=== PATIENT | female | born 1940 | race Two or more races ===

== ENCOUNTER 2023-05-23 23:07 | Inpatient (IN) | payer MEDICARE ==
[~2023-05-23] VITALS: Ht 167.6 cm; Wt 54.4 kg
[2023-05-24 00:07] LABS: BASOPHILS % (AUTO) 0.1 % (0.0-2.0); EOSINOPHILS # (AUTO) 0.1 K/uL (0.0-0.7); HEMATOCRIT 34 % (33-45); LYMPHOCYTES # (AUTO) 0.9 K/uL (0.8-4.8); LYMPHOCYTES % (AUTO) 6.8 % (20.0-44.0); MEAN CORPUSCULAR HEMOGLOBIN 31 PG (26.0-33.0); MEAN CORPUSCULAR HGB CONC 32 g/dl (31.0-36.0); MEAN CORPUSCULAR VOLUME 96 fL (82-100); MONOCYTES # (AUTO) 0.8 K/uL (0.1-1.30); MONOCYTES % (AUTO) 6.2 % (2.0-12.0); NEUTROPHILS # (AUTO) 10.7 K/uL (1.8-8.9); NEUTROPHILS % (AUTO) 85.9 % (43.0-81.0); PLATELET COUNT (AUTO) 283 K/uL (150-450); RED BLOOD CELL COUNT(AUTO) 3.56 MIL/uL (4.0-5.2); RED CELL DISTRIBUTION WIDTH 15.4 % (11.5-15.0); WHITE BLOOD COUNT (AUTO) 12.4 K/uL (4.3-11.0)
[2023-05-24 00:21] LABS: SERUM AMMONIA < 10 umol/L (11-32)
[2023-05-24 00:23] LABS: CALCIUM, SERUM 9.5 mg/dL (8.5-10.1); CARBON DIOXIDE 28 mmol/L (21-32); CHLORIDE 105 mmol/L (98-107); CREATININE 3.8 mg/dL (0.6-1.3); GLUCOSE 147 mg/dL (74-106); POTASSIUM 4.7 mmol/L (3.5-5.1); SODIUM SERUM 141 mmol/L (136-145); UREA NITROGEN, BLOOD 78 mg/dL (7-18)
[2023-05-24 00:29] LABS: ALANINE AMINOTRANSFERASE 21 U/L (12-78); ALBUMIN 2.7 g/dL (3.4-5.0); ALKALINE PHOSPHATASE 80 U/L (46-116); ASPARTATE AMINOTRANSFERASE 14 U/L (15-37); BILIRUBIN,DIRECT 0.1 mg/dL (0.0-0.2); BILIRUBIN,TOTAL 0.3 mg/dL (0.2-1.0); TOTAL PROTEIN, SERUM 7.1 g/dL (6.4-8.2)
[2023-05-24 00:30] LABS: INR 1.02 (0.91-1.10); PARTIAL THROMBOPLASTIN TIME 35.9 SEC (24.3-34.3); PROTHROMBIN TIME 10.8 SECS (9.2-11.1)
[2023-05-24] MEDS ORDERED: PIPERACI/TAZO 3.375GM/D5W 50ML PB IV ONE (00:59)
[2023-05-24] MEDS: PIPERACILLIN /TAZOBACTAM 3.375 G in IV D5W 50 ML IV ONE (01:00)
[2023-05-24 01:01] LABS: THYROID STIMULATING HORMONE 4.783 uIU/mL (0.358-3.74)
[2023-05-24 01:04] LABS: APPEARANCE,URINE CLOUDY (CLEAR); BILIRUBIN,URINE NEGATIVE (NEGATIVE); BLOOD, URINE NEGATIVE Ery/uL (NEGATIVE); COLOR,URINE YELLOW (YELLOW); KETONES,URINE NEGATIVE (NEGATIVE); LEUKOCYTE ESTERASE ,URINE NEGATIVE (NEGATIVE); NITRITE, URINE NEGATIVE (NEGATIVE); PH,URINE 8.5 (5.0-8.0); PROTEIN,URINE 2+ mg/dl (NEGATIVE); UGLUCOSE NEGATIVE (NEGATIVE); UROBILINOGEN,URINE 0.2 EU/dL (0.2)
[2023-05-24] MEDS ORDERED: VANCOMYCIN 1 GM /D5W 250 ML PB IV ONE (01:04)
[2023-05-24 01:07] LABS: ADD URINE CULTURE NO; BACTERIA,URINE None seen /HPF (None Seen); RBC,URINE 0-2 /HPF (0-2); SQUAMOUS EPITHELIAL CELL,UR Few /HPF (None Seen); WBC,URINE 0-2 /HPF (0-3)
[2023-05-24] MEDS: VANCOMYCIN 1 GM in IV D5W 250 ML IV ONE (01:28)
[2023-05-24] MEDS ORDERED: ZOLPIDEM TARTRATE 5 MG TABLET PO PRN (02:00)
[2023-05-24] MEDS ORDERED: MAG HYDROX/AL HYDROX/SIMETH 30 ML UDC PO PRN (02:00)
[2023-05-24] MEDS ORDERED: MAGNESIUM HYDROXIDE 30 ML UDC PO PRN (02:00)
[2023-05-24] MEDS ORDERED: ONDANSETRON HCL/PF 4 MG/2 ML VIAL IVP PRN (02:00)
[2023-05-24] MEDS ORDERED: Z GUARD REMEDY 4 OZ OINT TP PRN (02:00)
[2023-05-24] MEDS ORDERED: AZITHROMYCIN 500 MG VIAL ONE (02:15)
[2023-05-24] MEDS: AZITHROMYCIN 500 MG in IV D5W 250 ML IV ONE (02:22)
[2023-05-24 07:29] LABS: BASOPHILS # (AUTO) 0.1 K/uL (0.0-0.2); BASOPHILS % (AUTO) 0.6 % (0.0-2.0); EOSINOPHILS # (AUTO) 0.1 K/uL (0.0-0.7); EOSINOPHILS % (AUTO) 0.7 % (0.0-6.0); HEMATOCRIT 33 % (33-45); HEMOGLOBIN 10.2 g/dL (11.5-14.8); LYMPHOCYTES % (AUTO) 6.4 % (20.0-44.0); MEAN CORPUSCULAR HEMOGLOBIN 31 PG (26.0-33.0); MEAN CORPUSCULAR HGB CONC 31 g/dl (31.0-36.0); MEAN CORPUSCULAR VOLUME 99 fL (82-100); MONOCYTES # (AUTO) 1.1 K/uL (0.1-1.30); MONOCYTES % (AUTO) 7.4 % (2.0-12.0); NEUTROPHILS # (AUTO) 13.2 K/uL (1.8-8.9); NEUTROPHILS % (AUTO) 84.9 % (43.0-81.0); PLATELET COUNT (AUTO) 297 K/uL (150-450); RED BLOOD CELL COUNT(AUTO) 3.34 MIL/uL (4.0-5.2); WHITE BLOOD COUNT (AUTO) 15.6 K/uL (4.3-11.0)
[2023-05-24 07:47] LABS: CALCIUM, SERUM 9.3 mg/dL (8.5-10.1); CARBON DIOXIDE 21 mmol/L (21-32); CHLORIDE 103 mmol/L (98-107); CREATININE 3.9 mg/dL (0.6-1.3); GLUCOSE 153 mg/dL (74-106); POTASSIUM 4.6 mmol/L (3.5-5.1); SODIUM SERUM 138 mmol/L (136-145); UREA NITROGEN, BLOOD 79 mg/dL (7-18)
[2023-05-24 07:50] LABS: MAGNESIUM 2.7 mg/dL (1.8-2.4)
[2023-05-24 07:53] LABS: LACTIC ACID 0.9 mmol/L (0.4-2.0)
[2023-05-24 08:00] LABS: THYROID STIMULATING HORMONE 4.821 uIU/mL (0.358-3.74)
[2023-05-24 08:15] VITALS: BP 50/100; TEMP 98.2; O2SAT 84
[2023-05-24] MEDS ORDERED: MORPHINE SULFATE INJ 2 MG/ML DISP.SYRIN IVP PRN (08:30)
[2023-05-24] MEDS ORDERED: ZOSYN IVPB 2.25 G in IV D5W 50ml IV SCH (09:00)
[2023-05-24] MEDS ORDERED: ALBUTEROL FS 2.5 MG/0.5 ML VIAL.NEB NEB PRN (09:00)
[2023-05-24] MEDS: PANTOPRAZOLE 40 MG VIAL IV SCH (09:02)
[2023-05-24] MEDS: ENOXAPARIN SODIUM 30 MG/0.3 ML DISP.SYRIN SQ SCH (09:04)
[2023-05-24] MEDS: IV NS 0.9% 1,000 ML IV ONE (09:31)
[2023-05-24] MEDS ORDERED: ATOR20TA PO (09:50)
[2023-05-24] MEDS ORDERED: LATA2.5D15 EACHEYE (09:50)
[2023-05-24] MEDS ORDERED: SERT50TA PO (09:50)
[2023-05-24] MEDS ORDERED: CLON1PAT TD (09:50)
[2023-05-24] MEDS ORDERED: DILT-4 PO (09:50)
[2023-05-24] MEDS ORDERED: METO-358 PO (09:50)
[2023-05-24] MEDS ORDERED: TIMO5DRO35 EACHEYE (09:50)
[2023-05-24] MEDS ORDERED: ISOS30TA86 PO (09:50)
[2023-05-24] MEDS ORDERED: FLUT1BLS6 IH (09:50)
[2023-05-24] MEDS: IV NS 0.9% 1,000 ML BAG IV PRN (10:34)
[2023-05-24] MEDS: CEFEPIME 1 GM in IV D5W 50 ML IV SCH (11:11)
[2023-05-24 12:00] VITALS: BP 138/52; TEMP 97.5; O2SAT 91
[2023-05-24] MEDS ORDERED: IPRATROPIUM/ALBUTEROL INHALER IH SCH (12:00)
[2023-05-24 13:21] LABS: ABG BASE EXCESS -7.5 mmol/L; ABG OXYGEN SATURATION 96.2 % (92.0-98.5); ABG PCO2 55.6 mmHg (35.0-45.0); ABG PH 7.192 (7.350-7.450); ABG PO2 96.6 mmHg (75.0-100.0); ABG TOTAL HEMOGLOBIN 11.5 G/dL (12.0-16.0); AaDO2 124.7 mmHg; COHb 0.8 % (0.5-1.5); MetHb 0.2 % (0.0-1.5); O2Hb 95.2 % (94.0-97.0); SITE, ABG Right Radial; VENT MODE, BG Nasal Cannula
[2023-05-24] MEDS: IPRATROPIUM NEB FS 0.5 MG/2.5 ML AMPUL.NEB NEB SCH (13:36)
[2023-05-24] MEDS: ALBUTEROL FS 2.5 MG/0.5 ML VIAL.NEB NEB SCH (13:36)
[2023-05-24] MEDS ORDERED: Sodium Bicarbonate 100 MEQ in IV D5W 1,000 ML IV SCH (13:45)
[2023-05-24] MEDS: Sodium Bicarbonate 100 MEQ in IV D5W 1,000 ML IV SCH (14:05)
[2023-05-24] MEDS: methylPREDNISolone SOD SUCC 125 MG/2ML VIAL IV SCH (14:06)
[2023-05-24 15:32] LABS: ABG BASE EXCESS -7.6 mmol/L; ABG OXYGEN SATURATION 97.7 % (92.0-98.5); ABG PCO2 76.7 mmHg (35.0-45.0); ABG PH 7.097 (7.350-7.450); ABG PO2 129.8 mmHg (75.0-100.0); ABG TOTAL HEMOGLOBIN 11.6 G/dL (12.0-16.0); AaDO2 67.2 mmHg; COHb 0.9 % (0.5-1.5); MetHb 0.3 % (0.0-1.5); O2Hb 96.5 % (94.0-97.0); SITE, ABG Right Radial
[2023-05-24 16:18] VITALS: BP 137/74; TEMP 98.3; O2SAT 100
[2023-05-24] MEDS: TIMOLOL 0.5% SOLN OPHTH 5 ML BOTTLE EACHEYE SCH (17:06)
[2023-05-24 17:37] LABS: ABG BASE EXCESS -4.8 mmol/L; ABG OXYGEN SATURATION 97.9 % (92.0-98.5); ABG PCO2 58.2 mmHg (35.0-45.0); ABG PH 7.221 (7.350-7.450); ABG PO2 125.5 mmHg (75.0-100.0); ABG TOTAL HEMOGLOBIN 11.4 G/dL (12.0-16.0); AaDO2 92.8 mmHg; COHb 0.5 % (0.5-1.5); MetHb 0.3 % (0.0-1.5); O2Hb 97.1 % (94.0-97.0); SITE, ABG Right Radial
[2023-05-24 20:00] VITALS: BP 138/53; TEMP 98.1; O2SAT 100
[2023-05-24] MEDS: LATANOPROST EYE DROP 0.005% 2.5 ML BOTTLE EACHEYE SCH (22:21)
[2023-05-25] VITALS (13 sets, daily range): BP systolic 148–192; BP diastolic 56–83; TEMP 97.3–98.4; O2SAT 92–100
[2023-05-25 05:07] LABS: ABG BASE EXCESS -4.2 mmol/L; ABG OXYGEN SATURATION 94.6 % (92.0-98.5); ABG PCO2 47.1 mmHg (35.0-45.0); ABG PH 7.294 (7.350-7.450); ABG PO2 82.6 mmHg (75.0-100.0); ABG TOTAL HEMOGLOBIN 11.8 G/dL (12.0-16.0); COHb 0.8 % (0.5-1.5); MetHb 0.1 % (0.0-1.5); O2Hb 93.7 % (94.0-97.0); SITE, ABG Left Radial; VENT MODE, BG BIPAP 20/5 RR24 30%
[2023-05-25 07:10] LABS: APPEARANCE,URINE CLEAR (CLEAR); BILIRUBIN,URINE NEGATIVE (NEGATIVE); BLOOD, URINE TRACE-INTA Ery/uL (NEGATIVE); COLOR,URINE YELLOW (YELLOW); KETONES,URINE NEGATIVE (NEGATIVE); LEUKOCYTE ESTERASE ,URINE NEGATIVE (NEGATIVE); NITRITE, URINE NEGATIVE (NEGATIVE); PH,URINE 7.5 (5.0-8.0); PROTEIN,URINE 2+ mg/dl (NEGATIVE); UGLUCOSE NEGATIVE (NEGATIVE); UROBILINOGEN,URINE 0.2 EU/dL (0.2)
[2023-05-25 07:31] LABS: HEMATOCRIT 32 % (33-45); HEMOGLOBIN 10.6 g/dL (11.5-14.8); LYMPHOCYTES # (AUTO) 0.4 K/uL (0.8-4.8); LYMPHOCYTES % (AUTO) 5.8 % (20.0-44.0); MEAN CORPUSCULAR HEMOGLOBIN 31 PG (26.0-33.0); MEAN CORPUSCULAR HGB CONC 33 g/dl (31.0-36.0); MEAN CORPUSCULAR VOLUME 94 fL (82-100); MONOCYTES % (AUTO) 0.4 % (2.0-12.0); NEUTROPHILS # (AUTO) 7.2 K/uL (1.8-8.9); NEUTROPHILS % (AUTO) 93.8 % (43.0-81.0); PLATELET COUNT (AUTO) 215 K/uL (150-450); RED BLOOD CELL COUNT(AUTO) 3.38 MIL/uL (4.0-5.2); RED CELL DISTRIBUTION WIDTH 14.9 % (11.5-15.0); WHITE BLOOD COUNT (AUTO) 7.7 K/uL (4.3-11.0)
[2023-05-25 07:49] LABS: CREATININE, URINE 76.7 MG/DL (30.0-125.0)
[2023-05-25 08:10] LABS: ADD URINE CULTURE NO; BACTERIA,URINE Rare /HPF (None Seen); EOSINOPHIL,URINE None Seen; SQUAMOUS EPITHELIAL CELL,UR Few /HPF (None Seen); WBC,URINE 0-2 /HPF (0-3)
[2023-05-25 08:28] LABS: CHOLESTEROL 131 mg/dL (<200); CREATINE KINASE, TOTAL 37 U/L (26-192); HDL CHOLESTEROL 50 mg/dL (40-60); LDL 69 mg/dL (0-99); TRIGLYCERIDES 77 mg/dL (30-150)
[2023-05-25 08:36] LABS: ALANINE AMINOTRANSFERASE 18 U/L (12-78); ALBUMIN 2.4 g/dL (3.4-5.0); ALKALINE PHOSPHATASE 68 U/L (46-116); ASPARTATE AMINOTRANSFERASE 15 U/L (15-37); BILIRUBIN,TOTAL 0.4 mg/dL (0.2-1.0); CALCIUM, SERUM 8.8 mg/dL (8.5-10.1); CARBON DIOXIDE 22 mmol/L (21-32); CHLORIDE 104 mmol/L (98-107); CREATININE 4.2 mg/dL (0.6-1.3); GLUCOSE 171 mg/dL (74-106); MAGNESIUM 2.5 mg/dL (1.8-2.4); PHOSPHORUS 7.1 mg/dL (2.5-4.9); POTASSIUM 4.5 mmol/L (3.5-5.1); SODIUM SERUM 140 mmol/L (136-145); TOTAL PROTEIN, SERUM 6.6 g/dL (6.4-8.2)
[2023-05-25 08:53] LABS: UREA NITROGEN, BLOOD 81 mg/dL (7-18)
[2023-05-25] MEDS: ISOSORBIDE MONONITRATE (30MG) 30 MG TAB.SR.24H PO SCH (11:08)
[2023-05-25] MEDS: METOPROLOL SUCCINATE 50 MG TAB.SR.24H PO SCH (11:08)
[2023-05-25] MEDS: SERTRALINE HCL 50 MG TABLET PO SCH (11:09)
[2023-05-25] MEDS: ATORVASTATIN 10 MG TABLET PO SCH (11:09)
[2023-05-25] MEDS: DILTIAZEM HCL CD 240 MG PO SCH (11:09)
[2023-05-25] MEDS: Sodium Bicarbonate 100 MEQ in IV D5W 1,000 ML IV SCH (14:16)
[2023-05-25] MEDS: ACETAMINOPHEN 325 MG TABLET PO PRN (23:39)
[2023-05-26] VITALS (11 sets, daily range): BP systolic 147–161; BP diastolic 61–68; TEMP 97.5–98.8; O2SAT 93–100
[2023-05-26] MEDS: VANCOMYCIN 500 MG in IV D5W 100ml IV SCH (00:20)
[2023-05-26 07:15] LABS: CALCIUM, SERUM 8.2 mg/dL (8.5-10.1); CARBON DIOXIDE 24 mmol/L (21-32); CHLORIDE 100 mmol/L (98-107); CREATININE 4.4 mg/dL (0.6-1.3); GLUCOSE 200 mg/dL (74-106); POTASSIUM 4.2 mmol/L (3.5-5.1); SODIUM SERUM 135 mmol/L (136-145)
[2023-05-26 07:27] LABS: UREA NITROGEN, BLOOD 90 mg/dL (7-18)
[2023-05-26] MEDS: PANTOPRAZOLE 40 MG/PACK PACK PO SCH (08:49)
[2023-05-26 09:08] LABS: FOLIC ACID 17.1 ng/mL (>3.0)
[2023-05-26 11:07] LABS: PTH, INTACT 41 pg/mL (15-65)
[2023-05-26 12:08] LABS: *SPE A/G RATIO 0.7 (0.7-1.7); *SPE ALBUMIN 2.4 g/dL (2.9-4.4); *SPE ALPHA-1-GLOBULIN 0.3 g/dL (0.0-0.4); *SPE BETA GLOBULIN 0.9 g/dL (0.7-1.3); *SPE GLOBULIN, TOTAL 3.6 g/dL (2.2-3.9); *SPE M-SPIKE Not Observed g/dL (Not Observed); *SPEGAMMA GLOBULIN 1.4 g/dL (0.4-1.8)
[2023-05-26] MEDS: methylPREDNISolone SOD SUCC 125 MG/2ML VIAL IV SCH (12:38)
[2023-05-27] VITALS (9 sets, daily range): BP systolic 144–153; BP diastolic 65–80; TEMP 97.5–97.7; O2SAT 94–100
[2023-05-27 06:09] LABS: HEPATITIS B SURFACE AB Non Reactive (.)
[2023-05-27 06:30] LABS: CALCIUM, SERUM 8.4 mg/dL (8.5-10.1); CARBON DIOXIDE 31 mmol/L (21-32); CHLORIDE 99 mmol/L (98-107); CREATININE 4.7 mg/dL (0.6-1.3); GLUCOSE 276 mg/dL (74-106); POTASSIUM 3.6 mmol/L (3.5-5.1); SODIUM SERUM 138 mmol/L (136-145)
[2023-05-27 06:51] LABS: UREA NITROGEN, BLOOD 100 mg/dL (7-18)
[2023-05-27 09:08] LABS: COMPLEMENT C3, SERUM 85 mg/dL (82-167); COMPLEMENT C4, SERUM 31 mg/dL (12-38)
[2023-05-27] MEDS: LEVOFLOXACIN (250MG) 250 MG TABLET PO ONE (09:14)
[2023-05-27 13:08] LABS: *ANA ANTI-CENTROMERE B AB <0.2 AI (0.0-0.9); *ANA ANTI-DNA(DS) AB, QN <1 IU/mL (0-9); *ANA ANTI-JO-1 <0.2 AI (0.0-0.9); *ANA ANTICHROMATIN ANTIBODY <0.2 AI (0.0-0.9); *ANA RNP ANTIBODIES 0.2 AI (0.0-0.9); *ANA SJOGREN'S ANTI-SS-A <0.2 AI (0.0-0.9); *ANA SJOGREN'S ANTI-SS-B <0.2 AI (0.0-0.9); *ANAANTI-SCLERODERMA-70 AB <0.2 AI (0.0-0.9); *ANASMITH AB <0.2 AI (0.0-0.9)
[2023-05-28] VITALS (11 sets, daily range): BP systolic 152–183; BP diastolic 66–71; TEMP 97.9–98.6; O2SAT 94–100
[2023-05-28 07:15] LABS: CALCIUM, SERUM 7.6 mg/dL (8.5-10.1); CARBON DIOXIDE 28 mmol/L (21-32); CHLORIDE 97 mmol/L (98-107); CREATININE 4.4 mg/dL (0.6-1.3); GLUCOSE 226 mg/dL (74-106); POTASSIUM 3.8 mmol/L (3.5-5.1); SODIUM SERUM 136 mmol/L (136-145)
[2023-05-28 07:21] LABS: UREA NITROGEN, BLOOD 94 mg/dL (7-18)
[2023-05-29] VITALS (10 sets, daily range): BP systolic 133–169; BP diastolic 59–71; TEMP 97.3–98.2; O2SAT 90–100
[2023-05-29 07:14] LABS: INR 1.03 (0.91-1.10); PARTIAL THROMBOPLASTIN TIME 28.7 SEC (24.3-34.3); PROTHROMBIN TIME 10.9 SECS (9.2-11.1)
[2023-05-29 07:16] LABS: HEMATOCRIT 28 % (33-45); HEMOGLOBIN 9.5 g/dL (11.5-14.8); LYMPHOCYTES # (AUTO) 0.4 K/uL (0.8-4.8); LYMPHOCYTES % (AUTO) 2.9 % (20.0-44.0); MEAN CORPUSCULAR HEMOGLOBIN 31 PG (26.0-33.0); MEAN CORPUSCULAR HGB CONC 34 g/dl (31.0-36.0); MEAN CORPUSCULAR VOLUME 91 fL (82-100); MONOCYTES # (AUTO) 0.7 K/uL (0.1-1.30); MONOCYTES % (AUTO) 5.8 % (2.0-12.0); NEUTROPHILS # (AUTO) 11.1 K/uL (1.8-8.9); NEUTROPHILS % (AUTO) 91.3 % (43.0-81.0); PLATELET COUNT (AUTO) 187 K/uL (150-450); RED BLOOD CELL COUNT(AUTO) 3.04 MIL/uL (4.0-5.2); WHITE BLOOD COUNT (AUTO) 12.2 K/uL (4.3-11.0)
[2023-05-29 07:25] LABS: CALCIUM, SERUM 7.2 mg/dL (8.5-10.1); CARBON DIOXIDE 34 mmol/L (21-32); CHLORIDE 94 mmol/L (98-107); CREATININE 4.3 mg/dL (0.6-1.3); GLUCOSE 224 mg/dL (74-106); MAGNESIUM 2.3 mg/dL (1.8-2.4); PHOSPHORUS 6.8 mg/dL (2.5-4.9); POTASSIUM 3.5 mmol/L (3.5-5.1); SODIUM SERUM 135 mmol/L (136-145)
[2023-05-29 07:26] LABS: UREA NITROGEN, BLOOD 92 mg/dL (7-18)
[2023-05-29] MEDS: methylPREDNISolone SOD SUCC 40 MG/ML VIAL IV SCH (10:01)
[2023-05-29] MEDS: LEVOFLOXACIN (250MG) 250 MG TABLET PO SCH (10:06)
[2023-05-29] MEDS: NEOMY SULF/BACITRAC ZN/POLY 15 GM TUBE TP SCH (13:23)
[2023-05-30] VITALS (15 sets, daily range): BP systolic 140–181; BP diastolic 61–86; TEMP 97.5–98.4; O2SAT 92–100
[2023-05-30 07:08] LABS: HEMATOCRIT 31 % (33-45); LYMPHOCYTES # (AUTO) 0.4 K/uL (0.8-4.8); LYMPHOCYTES % (AUTO) 2.8 % (20.0-44.0); MEAN CORPUSCULAR HEMOGLOBIN 30 PG (26.0-33.0); MEAN CORPUSCULAR HGB CONC 33 g/dl (31.0-36.0); MEAN CORPUSCULAR VOLUME 92 fL (82-100); MONOCYTES # (AUTO) 0.8 K/uL (0.1-1.30); MONOCYTES % (AUTO) 5.8 % (2.0-12.0); NEUTROPHILS # (AUTO) 13.3 K/uL (1.8-8.9); NEUTROPHILS % (AUTO) 91.4 % (43.0-81.0); PLATELET COUNT (AUTO) 206 K/uL (150-450); RED BLOOD CELL COUNT(AUTO) 3.34 MIL/uL (4.0-5.2); RED CELL DISTRIBUTION WIDTH 14.5 % (11.5-15.0); WHITE BLOOD COUNT (AUTO) 14.5 K/uL (4.3-11.0)
[2023-05-30 08:53] LABS: CALCIUM, SERUM 7.9 mg/dL (8.5-10.1); CARBON DIOXIDE 36 mmol/L (21-32); CHLORIDE 94 mmol/L (98-107); CREATININE 4.1 mg/dL (0.6-1.3); GLUCOSE 193 mg/dL (74-106); MAGNESIUM 2.2 mg/dL (1.8-2.4); PHOSPHORUS 6.8 mg/dL (2.5-4.9); POTASSIUM 3.4 mmol/L (3.5-5.1); SODIUM SERUM 136 mmol/L (136-145)
[2023-05-30 08:56] LABS: UREA NITROGEN, BLOOD 91 mg/dL (7-18)
[2023-05-30] MEDS: hydrALAZINE HCL 25 MG TABLET PO PRN (17:52)
[2023-05-31] VITALS (12 sets, daily range): BP systolic 106–173; BP diastolic 39–71; TEMP 97.3–98.6; O2SAT 87–99
[2023-05-31 08:04] LABS: EOSINOPHILS % (AUTO) 0.1 % (0.0-6.0); HEMATOCRIT 32 % (33-45); HEMOGLOBIN 10.6 g/dL (11.5-14.8); LYMPHOCYTES # (AUTO) 0.5 K/uL (0.8-4.8); LYMPHOCYTES % (AUTO) 2.9 % (20.0-44.0); MEAN CORPUSCULAR HEMOGLOBIN 31 PG (26.0-33.0); MEAN CORPUSCULAR HGB CONC 33 g/dl (31.0-36.0); MEAN CORPUSCULAR VOLUME 92 fL (82-100); MONOCYTES # (AUTO) 1.4 K/uL (0.1-1.30); MONOCYTES % (AUTO) 7.8 % (2.0-12.0); NEUTROPHILS # (AUTO) 15.9 K/uL (1.8-8.9); NEUTROPHILS % (AUTO) 89.2 % (43.0-81.0); PLATELET COUNT (AUTO) 229 K/uL (150-450); RED BLOOD CELL COUNT(AUTO) 3.47 MIL/uL (4.0-5.2); RED CELL DISTRIBUTION WIDTH 14.7 % (11.5-15.0); WHITE BLOOD COUNT (AUTO) 17.9 K/uL (4.3-11.0)
[2023-05-31 08:23] LABS: CALCIUM, SERUM 7.6 mg/dL (8.5-10.1); CARBON DIOXIDE 33 mmol/L (21-32); CHLORIDE 94 mmol/L (98-107); CREATININE 4.1 mg/dL (0.6-1.3); GLUCOSE 185 mg/dL (74-106); POTASSIUM 3.6 mmol/L (3.5-5.1); SODIUM SERUM 135 mmol/L (136-145)
[2023-05-31 08:27] LABS: UREA NITROGEN, BLOOD 96 mg/dL (7-18)
[2023-05-31] MEDS ORDERED: NALOXONE PREFILLED SYRINGE 2 MG/2 ML SYRINGE IV PRN (11:00)
[2023-05-31] MEDS ORDERED: MIDAZOLAM HCL 2 MG/2ML VIAL IV PRN (11:00)
[2023-05-31] MEDS ORDERED: FLUMAZENIL 0.5 MG VIAL IV PRN (11:00)
[2023-05-31] MEDS ORDERED: FENTANYL PF 250MCG/5ML AMPUL IV PRN (11:00)
[2023-05-31] MEDS ORDERED: hydrALAZINE HCL IV 20 MG VIAL IV ONE (11:35)
[2023-05-31] MEDS ORDERED: GELATIN SPONGE,ABSORBABLE 1 SPONGE SPONGE TP ONE (14:42)
[2023-06-01] VITALS (11 sets, daily range): BP systolic 131–172; BP diastolic 51–58; TEMP 97.2–98.2; O2SAT 85–98
[2023-06-01 09:01] LABS: ABG BASE EXCESS 7.8 mmol/L; ABG OXYGEN SATURATION 90.7 % (92.0-98.5); ABG PCO2 52.3 mmHg (35.0-45.0); ABG PH 7.425 (7.350-7.450); ABG PO2 64.3 mmHg (75.0-100.0); ABG TOTAL HEMOGLOBIN 12.3 G/dL (12.0-16.0); AaDO2 73.6 mmHg; COHb 1.2 % (0.5-1.5); MetHb 0.2 % (0.0-1.5); O2Hb 89.4 % (94.0-97.0); SITE, ABG Right Radial; VENT MODE, BG 28% 2lpm N/C
[2023-06-01 11:54] LABS: EOSINOPHILS % (AUTO) 0.2 % (0.0-6.0); HEMATOCRIT 34 % (33-45); LYMPHOCYTES # (AUTO) 0.4 K/uL (0.8-4.8); MEAN CORPUSCULAR HEMOGLOBIN 30 PG (26.0-33.0); MEAN CORPUSCULAR HGB CONC 33 g/dl (31.0-36.0); MEAN CORPUSCULAR VOLUME 92 fL (82-100); MONOCYTES # (AUTO) 0.6 K/uL (0.1-1.30); NEUTROPHILS # (AUTO) 18.9 K/uL (1.8-8.9); NEUTROPHILS % (AUTO) 94.8 % (43.0-81.0); PLATELET COUNT (AUTO) 249 K/uL (150-450); RED BLOOD CELL COUNT(AUTO) 3.66 MIL/uL (4.0-5.2); RED CELL DISTRIBUTION WIDTH 14.6 % (11.5-15.0)
[2023-06-01 12:16] LABS: ALANINE AMINOTRANSFERASE 25 U/L (12-78); ALBUMIN 1.9 g/dL (3.4-5.0); ALKALINE PHOSPHATASE 49 U/L (46-116); ASPARTATE AMINOTRANSFERASE 16 U/L (15-37); BILIRUBIN,TOTAL 0.5 mg/dL (0.2-1.0); CALCIUM, SERUM 8.2 mg/dL (8.5-10.1); CARBON DIOXIDE 37 mmol/L (21-32); CHLORIDE 94 mmol/L (98-107); GLUCOSE 184 mg/dL (74-106); MAGNESIUM 2.7 mg/dL (1.8-2.4); POTASSIUM 4.1 mmol/L (3.5-5.1); SODIUM SERUM 137 mmol/L (136-145); TOTAL PROTEIN, SERUM 5.3 g/dL (6.4-8.2)
[2023-06-01 12:21] LABS: PHOSPHORUS 8.2 mg/dL (2.5-4.9); UREA NITROGEN, BLOOD 99 mg/dL (7-18)
[2023-06-02] VITALS (9 sets, daily range): BP systolic 116–162; BP diastolic 56–58; TEMP 97.3–98.4; O2SAT 9–99
[2023-06-02 09:13] LABS: ALANINE AMINOTRANSFERASE 59 U/L (12-78); ALBUMIN 1.9 g/dL (3.4-5.0); ALKALINE PHOSPHATASE 58 U/L (46-116); ASPARTATE AMINOTRANSFERASE 34 U/L (15-37); BASOPHILS % (AUTO) 0.1 % (0.0-2.0); BILIRUBIN,TOTAL 0.3 mg/dL (0.2-1.0); CALCIUM, SERUM 7.8 mg/dL (8.5-10.1); CARBON DIOXIDE 36 mmol/L (21-32); CHLORIDE 99 mmol/L (98-107); EOSINOPHILS # (AUTO) 0.1 K/uL (0.0-0.7); EOSINOPHILS % (AUTO) 0.3 % (0.0-6.0); GLUCOSE 154 mg/dL (74-106); HEMATOCRIT 34 % (33-45); LYMPHOCYTES # (AUTO) 0.5 K/uL (0.8-4.8); LYMPHOCYTES % (AUTO) 2.3 % (20.0-44.0); MEAN CORPUSCULAR HEMOGLOBIN 30 PG (26.0-33.0); MEAN CORPUSCULAR HGB CONC 32 g/dl (31.0-36.0); MEAN CORPUSCULAR VOLUME 94 fL (82-100); MONOCYTES # (AUTO) 1.5 K/uL (0.1-1.30); MONOCYTES % (AUTO) 6.7 % (2.0-12.0); NEUTROPHILS # (AUTO) 20.7 K/uL (1.8-8.9); NEUTROPHILS % (AUTO) 90.6 % (43.0-81.0); PLATELET COUNT (AUTO) 226 K/uL (150-450); POTASSIUM 3.9 mmol/L (3.5-5.1); RED BLOOD CELL COUNT(AUTO) 3.67 MIL/uL (4.0-5.2); RED CELL DISTRIBUTION WIDTH 14.9 % (11.5-15.0); SODIUM SERUM 140 mmol/L (136-145); TOTAL PROTEIN, SERUM 5.3 g/dL (6.4-8.2); WHITE BLOOD COUNT (AUTO) 22.8 K/uL (4.3-11.0)
[2023-06-02 09:22] LABS: UREA NITROGEN, BLOOD 103 mg/dL (7-18)
[2023-06-02] MEDS: ISOSORBIDE MONONITRATE (30MG) 30 MG TAB.SR.24H PO SCH (09:30)
[2023-06-02] MEDS ORDERED: NEPRO VAN 237 ML CAN PO PRN (14:00)
[2023-06-03] VITALS (10 sets, daily range): BP systolic 145–153; BP diastolic 60–68; TEMP 97.3–97.6; O2SAT 93–100
[2023-06-03] MEDS ORDERED: predniSONE 10 MG TABLET PO SCH (11:30)
[2023-06-03] MEDS: predniSONE 20 MG TABLET PO SCH (12:16)
[2023-06-03 12:28] LABS: BASOPHILS % (AUTO) 0.2 % (0.0-2.0); EOSINOPHILS % (AUTO) 0.1 % (0.0-6.0); HEMATOCRIT 32 % (33-45); HEMOGLOBIN 10.4 g/dL (11.5-14.8); LYMPHOCYTES # (AUTO) 0.4 K/uL (0.8-4.8); LYMPHOCYTES % (AUTO) 2.3 % (20.0-44.0); MEAN CORPUSCULAR HEMOGLOBIN 30 PG (26.0-33.0); MEAN CORPUSCULAR HGB CONC 32 g/dl (31.0-36.0); MEAN CORPUSCULAR VOLUME 93 fL (82-100); MONOCYTES # (AUTO) 0.6 K/uL (0.1-1.30); NEUTROPHILS # (AUTO) 17.7 K/uL (1.8-8.9); NEUTROPHILS % (AUTO) 94.4 % (43.0-81.0); PLATELET COUNT (AUTO) 224 K/uL (150-450); RED BLOOD CELL COUNT(AUTO) 3.48 MIL/uL (4.0-5.2); RED CELL DISTRIBUTION WIDTH 14.8 % (11.5-15.0); WHITE BLOOD COUNT (AUTO) 18.7 K/uL (4.3-11.0)
[2023-06-03 12:50] LABS: ALANINE AMINOTRANSFERASE 42 U/L (12-78); ALBUMIN 1.9 g/dL (3.4-5.0); ALKALINE PHOSPHATASE 52 U/L (46-116); ASPARTATE AMINOTRANSFERASE 18 U/L (15-37); BILIRUBIN,TOTAL 0.3 mg/dL (0.2-1.0); CARBON DIOXIDE 33 mmol/L (21-32); CHLORIDE 97 mmol/L (98-107); CREATININE 3.9 mg/dL (0.6-1.3); GLUCOSE 149 mg/dL (74-106); MAGNESIUM 2.8 mg/dL (1.8-2.4); PHOSPHORUS 7.8 mg/dL (2.5-4.9); POTASSIUM 4.7 mmol/L (3.5-5.1); SODIUM SERUM 137 mmol/L (136-145); TOTAL PROTEIN, SERUM 5.2 g/dL (6.4-8.2)
[2023-06-03 13:14] LABS: UREA NITROGEN, BLOOD 106 mg/dL (7-18)
[2023-06-04] VITALS (12 sets, daily range): BP systolic 120–132; BP diastolic 54–77; TEMP 97.5–98; O2SAT 88–97
[2023-06-04 17:38] LABS: CALCIUM, SERUM 7.8 mg/dL (8.5-10.1); CARBON DIOXIDE 33 mmol/L (21-32); CHLORIDE 94 mmol/L (98-107); CREATININE 4.1 mg/dL (0.6-1.3); GLUCOSE 187 mg/dL (74-106); SODIUM SERUM 134 mmol/L (136-145); UREA NITROGEN, BLOOD 109 mg/dL (7-18)
[2023-06-04 17:39] LABS: MAGNESIUM 2.5 mg/dL (1.8-2.4)
[2023-06-04 17:40] LABS: PHOSPHORUS 8.1 mg/dL (2.5-4.9)
[2023-06-04 22:44] LABS: HEMATOCRIT 32 % (33-45); HEMOGLOBIN 10.3 g/dL (11.5-14.8); LYMPHOCYTES # (AUTO) 0.4 K/uL (0.8-4.8); LYMPHOCYTES % (AUTO) 1.8 % (20.0-44.0); MEAN CORPUSCULAR HEMOGLOBIN 30 PG (26.0-33.0); MEAN CORPUSCULAR HGB CONC 33 g/dl (31.0-36.0); MEAN CORPUSCULAR VOLUME 93 fL (82-100); MONOCYTES # (AUTO) 0.9 K/uL (0.1-1.30); MONOCYTES % (AUTO) 4.4 % (2.0-12.0); NEUTROPHILS # (AUTO) 19.2 K/uL (1.8-8.9); NEUTROPHILS % (AUTO) 93.8 % (43.0-81.0); PLATELET COUNT (AUTO) 236 K/uL (150-450); RED CELL DISTRIBUTION WIDTH 14.6 % (11.5-15.0); WHITE BLOOD COUNT (AUTO) 20.4 K/uL (4.3-11.0)
[2023-06-05] VITALS (14 sets, daily range): BP systolic 123–168; BP diastolic 56–66; TEMP 97.7–97.8; O2SAT 88–98
[2023-06-05 07:24] LABS: BASOPHILS % (AUTO) 0.1 % (0.0-2.0); EOSINOPHILS % (AUTO) 0.1 % (0.0-6.0); HEMATOCRIT 33 % (33-45); LYMPHOCYTES # (AUTO) 0.4 K/uL (0.8-4.8); LYMPHOCYTES % (AUTO) 2.1 % (20.0-44.0); MEAN CORPUSCULAR HEMOGLOBIN 31 PG (26.0-33.0); MEAN CORPUSCULAR HGB CONC 33 g/dl (31.0-36.0); MEAN CORPUSCULAR VOLUME 93 fL (82-100); MONOCYTES # (AUTO) 1.2 K/uL (0.1-1.30); MONOCYTES % (AUTO) 5.5 % (2.0-12.0); NEUTROPHILS # (AUTO) 20.1 K/uL (1.8-8.9); NEUTROPHILS % (AUTO) 92.2 % (43.0-81.0); PLATELET COUNT (AUTO) 223 K/uL (150-450); RED BLOOD CELL COUNT(AUTO) 3.59 MIL/uL (4.0-5.2); RED CELL DISTRIBUTION WIDTH 14.4 % (11.5-15.0); WHITE BLOOD COUNT (AUTO) 21.7 K/uL (4.3-11.0)
[2023-06-05 07:53] LABS: CALCIUM, SERUM 7.6 mg/dL (8.5-10.1); CARBON DIOXIDE 34 mmol/L (21-32); CHLORIDE 96 mmol/L (98-107); CREATININE 4.1 mg/dL (0.6-1.3); GLUCOSE 198 mg/dL (74-106); POTASSIUM 4.4 mmol/L (3.5-5.1); SODIUM SERUM 136 mmol/L (136-145)
[2023-06-05 08:04] LABS: UREA NITROGEN, BLOOD 109 mg/dL (7-18)
== END 2023-06-05 20:30 | DRG 871 ==
LOC: ER 23:10 → ICU 05-24 01:09 → TELE1 05-24 01:12 → TELE 05-24 02:55 → MED 05-25 17:56
PROVIDERS: ADMIT Internal Medicine; ATTEND Internal Medicine
PROC: 5A09457 Assistance with Respiratory Ventilation, 24-96 Consecutive Hours, Continuous Positive Airway Pressure (ICD-10-PCS; principal; 2023-05-24)
PROC: 0TB03ZX Excision of Right Kidney, Percutaneous Approach, Diagnostic (ICD-10-PCS; 2023-05-31)
DX: A41.9 Sepsis, unspecified organism (principal); J15.9 Unspecified bacterial pneumonia; J96.21 Acute and chronic respiratory failure with hypoxia; N17.0 Acute kidney failure with tubular necrosis; I13.0 Hypertensive heart and chronic kidney disease with heart failure and stage 1 through stage 4 chronic kidney disease, or unspecified chronic kidney disease; J44.0 Chronic obstructive pulmonary disease with (acute) lower respiratory infection; E87.29 Other acidosis; G93.40 Encephalopathy, unspecified; I50.9 Heart failure, unspecified; N18.30 Chronic kidney disease, stage 3 unspecified; Z20.822 Contact with and (suspected) exposure to COVID-19; Z66 Do not resuscitate; Z85.528 Personal history of other malignant neoplasm of kidney; Z79.51 Long term (current) use of inhaled steroids; Z79.899 Other long term (current) drug therapy; D64.9 Anemia, unspecified; E78.5 Hyperlipidemia, unspecified; G20.A1 Parkinson's disease without dyskinesia, without mention of fluctuations; F02.80 Dementia in other diseases classified elsewhere, unspecified severity, without behavioral disturbance, psychotic disturbance, mood disturbance, and anxiety; J84.10 Pulmonary fibrosis, unspecified; N27.1 Small kidney, bilateral; Z91.199 Patient's noncompliance with other medical treatment and regimen due to unspecified reason; F17.200 Nicotine dependence, unspecified, uncomplicated
CPT/HCPCS: 36415; 36600; 70450-TC; 71045-TC; 71250-TC; 76770-TC; 77012-TC; 80048-TC; 80053-TC; 80061-TC; 80076-TC; 81001; 82140-TC; 82550-TC; 82570-TC; 82607-TC; 82803-TC; 82962-TC; 83605-TC; 83735-TC; 83921; 83970; 84100-TC; 84155; 84165; 84300-TC; 84439-TC; 84443-TC; 84481; 84484-TC; 85025-TC; 85652-TC; 85730-TC; 86225; 86235; 86706; 86803; 87040-TC; 87086-TC; 87340; 92526; 92611-TC; 93307-TC; 94760-TC; 94761-TC; 94762-TC; 94799-TC; 97110-TC; 97112-TC; 97116-TC; 97530-TC; A4223; C9113; G0378; J0360; J0456; J0692; J1650; J2250; J2543; J2920; J2930; J3010; J3370; J7030; J7050; J7060; J7070